=== PATIENT | female | born 1955 | race Caucasian/White ===

== ENCOUNTER → 2018-04-21 | Outpatient (CLI) | payer OTHER ==
--- NOTE | 2018-04-21 10:38 | RAD ---
EXAM DESCRIPTION: Knee,Left 2 or More Views CLINICAL HISTORY: 62 yearsFemale, PAIN IN KNEE COMPARISON: None. IMPRESSION: 2 views of the left knee demonstrate severe changes of osteoarthritis involving all 3 compartments of the knee with narrowing of the joint spaces, subchondral sclerosis, and marginal osteophytes. The findings are most severe in the medial tibiofemoral and patellofemoral compartments. No evidence of acute fracture, dislocation, or destructive osseous lesion. No evidence of a joint effusion. Electronically signed by: Markus Hylton MD 04/21/2018 10:37 AM CDT
--- NOTE | 2018-04-21 10:41 | RAD ---
EXAM DESCRIPTION: Knee,Right 2 or More Views CLINICAL HISTORY: 62 yearsFemale, PAIN IN KNEE COMPARISON: None. IMPRESSION: 2 views of the right knee demonstrate [id number] changes of osteoarthritis involving all 3 compartments of the knee with narrowing of the joint spaces and marginal osteophytes. No evidence of acute fracture or destructive osseous lesion. No evidence of a joint effusion. Electronically signed by: Markus Hylton MD 04/21/2018 10:40 AM CDT
--- NOTE | 2018-04-21 10:43 | RAD ---
EXAM DESCRIPTION: Lumbar Spine 5 Views CLINICAL HISTORY: Ankylosing spondylitis of unspecified sites in spine. Back pain. COMPARISON: None Available. TECHNIQUE: AP/lateral/ coned-down lateral/both obliques FINDINGS: Vertebral body stature and alignment are maintained. No evidence of acute fracture or destructive osseous lesion. No evidence of spondylolysis or spondylolisthesis. Multilevel lumbar disc degeneration with mild to moderate disc narrowing from L3-L4 through L5-S1. Hypertrophic facet degenerative changes at these levels. IMPRESSION: Multilevel disc degeneration and facet degenerative changes in the lower lumbar spine. Electronically signed by: Markus Hylton MD 04/21/2018 10:41 AM CDT
--- NOTE | 2018-04-21 10:44 | RAD ---
EXAM DESCRIPTION: Sacroiliac Joints CLINICAL HISTORY: 62 yearsFemale, Ankylosing spondylitis of unspecified sites in spine COMPARISON: None. IMPRESSION: Mild degenerative changes are demonstrated in both sacroiliac joints with no evidence of significant sclerosis or radiographic evidence of effusion. No acute fracture or destructive osseous lesion. Electronically signed by: Markus Hylton MD 04/21/2018 10:43 AM CDT
== END ==
LOC: RAD 09:43
PROVIDERS: ATTEND Internal Medicine Rheumatology
DX: M45.9 Ankylosing spondylitis of unspecified sites in spine (principal); M51.36 Other intervertebral disc degeneration, lumbar region; M17.0 Bilateral primary osteoarthritis of knee; M25.559 Pain in unspecified hip; M25.561 Pain in right knee

== ENCOUNTER → 2019-01-01 | Outpatient (CLI) | payer OTHER | LOC: GMAH 14:24 | PROVIDERS: ATTEND Family Medicine | DX: Z13.6 Encounter for screening for cardiovascular disorders (principal); Z13.220 Encounter for screening for lipoid disorders ==

== ENCOUNTER → 2019-01-15 | Outpatient (CLI) | payer OTHER ==
--- NOTE | 2019-01-16 16:24 | MAM ---
EXAM DESCRIPTION: 3D Screening BILATERAL : Digital Mammography. CLINICAL HISTORY: 63 years Female SCREENING . No complaints or personal history of breast cancer. Mother with breast cancer and remote family history of breast cancer. Childbirth late. Postmenopausal 17 years. No HRT. Bilateral breast augmentation. Benign biopsy right breast. Lifetime risk of developing breast cancer (Tyrer-Cuzick model)(%): 13.5. COMPARISON: 2-D digital screening bilateral mammography 09/17/2013.. No prior reports available. TECHNIQUE: Bilateral CC and MLO projection full-field images, with Reinaldo Implant Displacement digital tomosynthesis mammographic technique. Bilateral 2-D digital full-field images, MLO and CC projections, non-displaced. CAD Bilateral digital 2-D full-field MLO images. CAD not available for tomosynthesis or 2-D images. FINDINGS: The breast parenchymal density pattern is: Heterogeneously dense breast tissue, which may obscure small masses. No skin thickening or nipple retraction. Bilateral diffuse microcalcifications associated with fibroglandular tissues along with bilateral vascular calcifications. Biopsy site marker lower outer quadrant middle third right breast. Bilateral saline intramuscular implants. Capsules intact where seen. Multiple groups of micro-calcifications in the upper outer quadrant of the right breast, and in the posterior left breast near the posterior nipple line. Motion artifact on some of the images. IMPRESSION: BI-RADS CATEGORY: 0 - INCOMPLETE- Need additional imaging evaluation. FOLLOW-UP: Recall for additional imaging: Spot digital magnification. Upper outer quadrant of the right breast and posterior midline left breast. Written communication concerning the IMPRESSION and Follow-up, will be mailed to the patient and referring health care provider. Electronically signed by: Demar Hernandez MD 01/16/2019 4:22 PM CDT
== END ==
LOC: MAMMO 12:30
PROVIDERS: ATTEND Family Medicine
DX: Z12.31 Encounter for screening mammogram for malignant neoplasm of breast (principal)

== ENCOUNTER → 2019-02-13 | Outpatient (CLI) | payer OTHER ==
--- NOTE | 2019-02-13 14:15 | MRI ---
EXAM DESCRIPTION: Cervical Spine w/wo Contrast: MRI. CLINICAL HISTORY: 63 years Female RADICULOPATHY COMPARISON: Cervical MRI without contrast 07/04/2013. TECHNIQUE: Multiplanar, high-field MRI, multiple sequences, non-contrast Cervical spine. FINDINGS: Syringomyelia is again seen in the central cord with upper margin at the C6-7 disc space level and lower margin of the C7-T1 disc space level. No cord expansion. No proximal or distal cord lesion intrinsic or extrinsic. Stable appearance compared to the prior study. C2-3: Minimal disc desiccation without bulging. Small uncinate spur narrowing the right neural foramen. Left neuroforamen and canal are patent. Mild arthrosis left facet joint. C3-4: Normal signal in the disc with disc space preserved. Bilateral foramina are patent. Minimal facet arthrosis bilaterally with cyst posterior to the right facet joint. C4-C5: Normal signal in the disc except for posterior hyperintense T2 signal in a small annular fissure but no bulging. Disc space preserved. Bilateral facet joints are unremarkable and bilateral neural foramina and spinal canal are patent. C5-C6: Moderate disc space loss and disc desiccation. Anterior bulging and of the disc with spurs and mild narrowing of the canal. Bilateral uncinate spurs with disc spur complex causing moderate neural foraminal narrowing. Facet joints are unremarkable. Normal signal in the C6-C7 disc, C7-T1 disc, and T1-T2 disc with no bulging. Disc spaces preserved. Canal and neural foramina are patent. Facet joints unremarkable. Spinal alignment neutral. No cord compression.. Atlantoaxial joint with minimal hypertrophy. Base of the cerebellar tonsils is at the level of the foramen magnum. Paravertebral soft tissues negative.. Vertebral bodies are not compressed at any level. Normal marrow signal in the remaining vertebral bodies and the posterior elements. IMPRESSION: 1. Stable syringomyelia with upper margin at the level of the C6-7 disc space and lower margin at the level of the C7-T1 disc space. No cord compression or expansion. No extrinsic mass involving the cord above or below the lesion. 2. Posterior C4-C5 disc bulge with annular fissure with minimal bulging but no significant canal or neural foraminal narrowing. This has progressed since the prior study. 3. Spondylosis C5-C6 with neural foraminal and canal narrowing stable since the prior study. Electronically signed by: Demar Hernandez MD 02/13/2019 2:11 PM CDT
--- NOTE | 2019-02-13 17:11 | MAM ---
EXAM DESCRIPTION: 3D Diagnostic, Bilateral: Digital Mammography CLINICAL HISTORY: 63 yearsFemaleABNORMAL MAMMO bilateral microcalcifications.. COMPARISON: Bilateral screening digital breast tomosynthesis 01/15/2019... TECHNIQUE: Bilateral LM projection full-field images, digital mammographic tomosynthesis, Reinaldo implant displacement technique. Bilateral 2-D digital full-field LM images. Bilateral magnification of the central and lateral and superior breast in MLO projections. CAD not available. FINDINGS: The breast parenchymal density pattern is: Heterogeneously dense breast tissue, which may obscure small masses. No skin thickening or nipple retraction . Again noted are bilateral retro-muscular saline implants. Multiple diffuse microcalcifications are seen in the retroareolar left breast and extending more laterally than medially and also more densely associated with the fibroglandular density tissue is. Similar pattern and morphology of calcifications is noted in the retroareolar and upper lateral quadrant of the right breast with fewer calcifications inferior and medial to the nipple. Biopsy site marker is visible at the 8:00 position of the right breast approximately 3 cm from the nipple. No focal, stellate mass or density bilaterally. Implant margins and borders are intact where seen., IMPRESSION: BI-RADS CATEGORY: 3 - PROBABLY BENIGN. Management: Short interval (6-month) follow-up diagnostic bilateral digital breast tomosynthesis. The FINDINGS and the FOLLOW-UP plan were reviewed in person with the patient after the examination. Written communication explaining the IMPRESSION and FOLLOW-UP will be mailed to the patient and referring care provider. Electronically signed by: Demar Hernandez MD 02/13/2019 5:08 PM CDT
== END ==
LOC: MAMMO 10:18
PROVIDERS: ATTEND Family Medicine
DX: M51.16 Intervertebral disc disorders with radiculopathy, lumbar region (principal); G95.0 Syringomyelia and syringobulbia; M47.892 Other spondylosis, cervical region; M50.921 Unspecified cervical disc disorder at C4-C5 level; R92.8 Other abnormal and inconclusive findings on diagnostic imaging of breast
CPT/HCPCS: 72156; 77066; G0279

== ENCOUNTER → 2019-02-22 | Outpatient (CLI) | payer OTHER ==
--- NOTE | 2019-02-23 12:24 | RAD ---
EXAM: Humerus,Right CLINICAL HISTORY: PN IN UPPER LIMB COMPARISON STUDY: None TECHNICAL: AP and lateral x-rays of the right humerus FINDINGS: No humeral fracture. The shoulder and elbow are in alignment. There are mild degenerative changes of the left AC joint. IMPRESSION: Negative right humerus. Mild degenerative changes of the right AC joint. Electronically signed by: Frandy Valdez MD 02/23/2019 12:22 PM CDT
== END ==
LOC: RAD 16:35
PROVIDERS: ATTEND Orthopaedic Surgery
DX: M19.011 Primary osteoarthritis, right shoulder (principal)

== ENCOUNTER → 2019-10-12 | Outpatient (CLI) | payer OTHER ==
--- NOTE | 2019-10-12 11:39 | RAD ---
EXAM DESCRIPTION: Shoulder,Right 2 or More Views CLINICAL HISTORY: PAIN IN RIGHT SHOULDER COMPARISON: None. TECHNIQUE: 4 views right FINDINGS: Mild degenerative changes are observed in the acromioclavicular joint. The glenohumeral joint is normal in appearance. No evidence of a fracture or dislocation is seen. IMPRESSION: Mild right AC joint arthritis is observed. The exam is otherwise unremarkable. Electronically signed by: Juan F Callejas MD 10/12/2019 11:37 AM [facility]
--- NOTE | 2019-10-12 11:40 | RAD ---
EXAM DESCRIPTION: FIVE VIEW CERVICAL SPINE CLINICAL HISTORY: PAIN IN RIGHT SHOULDER COMPARISON: None Available. TECHNIQUE: AP/lateral/ both oblique/open-mouth odontoid FINDINGS: Mild anterior subluxation of C3 on C4 is observed. Loss of disc height is observed at the C5-6 level. Mild anterior osteophyte formation is observed at this level. No malrotation is observed. The atlantoaxial junction and dens are normal. IMPRESSION: Degenerative changes are seen at the C3-4 and C5-6 levels. Electronically signed by: Juan F Callejas MD 10/12/2019 11:38 AM [facility]
== END ==
LOC: RAD 10:28
PROVIDERS: ATTEND Family Medicine
DX: M47.892 Other spondylosis, cervical region (principal); M19.011 Primary osteoarthritis, right shoulder

== ENCOUNTER → 2019-10-22 | Outpatient (CLI) | payer OTHER ==
--- NOTE | 2019-10-22 16:44 | MRI ---
Study: MRI of the Right Shoulder. Indication: ROTATOR CUFF SYNDROME Technique: Multiplanar, multi sequence MRI of the right shoulder was obtained without intravenous contrast. Comparison: None. Findings: Moderate hypertrophic AC joint osteoarthritis. Type I acromion. Full-thickness, fullwidth supraspinatus and infraspinatus tendon tearing with retraction of torn tendon fibers to the level of the AC joint line. Subscapularis tendinosis and attenuation. Mild atrophy and grade 1 fatty infiltration of rotator cuff musculature with mild intramuscular edema supraspinatus and infraspinatus muscle bellies. Long head biceps tendinosis with flattening of the tendon at the superior intertubercular groove. Circumferential labral truncation/degeneration. Mild glenohumeral joint osteoarthritis. Small joint effusion. No acute fracture. Impression: Retracted full-thickness, fullwidth supraspinatus and infraspinatus tendon tearing. Subscapularis tendinosis and attenuation. Mild atrophy and grade 1 fatty infiltration rotator cuff musculature as well as mild edema of the supraspinatus and infraspinatus muscle bellies. Circumferential labral truncation and degeneration. Mild glenohumeral joint osteoarthritis with small joint effusion. Moderate hypertrophic AC joint osteoarthritis. Electronically signed by: Jose Miguel Vaca MD 10/22/2019 4:43 PM [employer]
== END ==
LOC: MRI 13:27
PROVIDERS: ATTEND Orthopaedic Surgery
DX: M75.101 Unspecified rotator cuff tear or rupture of right shoulder, not specified as traumatic (principal); M62.511 Muscle wasting and atrophy, not elsewhere classified, right shoulder; M75.91 Shoulder lesion, unspecified, right shoulder; M19.011 Primary osteoarthritis, right shoulder; M25.411 Effusion, right shoulder

== ENCOUNTER → 2019-10-30 | Outpatient (CLI) | payer OTHER | LOC: LAB.O 10:17 | PROVIDERS: ATTEND Orthopaedic Surgery | DX: Z01.818 Encounter for other preprocedural examination (principal) ==

== ENCOUNTER 2019-11-21 05:36 | Day surgery (SDC) | payer OTHER ==
[2019-11-21] MEDS ORDERED: LACTATED RINGERS 1,000 ML IVS ONE (06:30)
[2019-11-21] MEDS ORDERED: VANCOMYCIN HCL INJ 1,000 MG VIAL IVPB ONE (06:56)
[2019-11-21] MEDS ORDERED: ceFAZolin SODIUM 1 GM VIAL IRRIG ONE (06:56)
[2019-11-21] MEDS ORDERED: BUPIVACAINE LIPOSOME 13.3 MG/ML VIAL INJ ONE (06:56)
[2019-11-21] MEDS ORDERED: BUPIVACAINE 0.5% 30 ML VIAL INJ ONE (06:56)
[2019-11-21] MEDS ORDERED: PROPOFOL 200 MG/20 ML VIAL IV ONE (07:00)
[2019-11-21] MEDS ORDERED: raNITIdine HCL INJ 25 MG/ML VIAL ONE (07:00)
[2019-11-21] MEDS ORDERED: LIDOCAINE 1% 10 ML VIAL INJ ONE (07:00)
[2019-11-21] MEDS ORDERED: DEXAMETHASONE INJ 10 MG/ML VIAL ONE (07:00)
[2019-11-21] MEDS ORDERED: fentaNYL CITRATE INJ 50 MCG/ML AMP ONE (07:00)
[2019-11-21] MEDS ORDERED: ePHEDrine SULF 50 MG/ML ONE (07:00)
[2019-11-21] MEDS ORDERED: MIDAZOLAM INJ 2 MG/2 ML VIAL ONE (07:00)
[2019-11-21] MEDS ORDERED: KETOROLAC TROMETHAMINE INJ 30 MG/ML VIAL ONE (07:00)
[2019-11-21] MEDS ORDERED: SODIUM CHLORIDE 0.9% 50 ML VIAL ONE (07:00)
[2019-11-21] MEDS ORDERED: KETAMINE HCL 100 MG/ML VIAL ONE (07:00)
[2019-11-21] MEDS ORDERED: ELECTROLYTE-A 1,000 ML IVS ONE (08:45)
[2019-11-22 02:56] VITALS: BP 98/52; TEMP 96.5; O2SAT 96
--- NOTE | 2019-11-22 09:25 | OP ---
PREOPERATIVE DIAGNOSIS: 1. Rotator cuff tear, right shoulder. POSTOPERATIVE DIAGNOSIS: 1. Rotator cuff tear, right shoulder. PROCEDURE: 1. Rotator cuff repair. SURGEON: Frantz Sorto MD. BENCH MOVER: Demar Lira CST, SA-C. ANESTHESIA: General anesthesia. COMPLICATIONS: None. FINDINGS: Complete rupture of the supraspinatus and infraspinatus tendons from their anatomic footprint. INDICATION: Ms. Schneider has a long history of shoulder pain. She has failed conservative measures and therefore requested operative intervention. After discussing the risks, benefits and alternatives to operative intervention, informed consent was obtained. PROCEDURE: The patient was brought to the Operating Room and placed in the supine position. General anesthesia was induced and the patient was transitioned into the beach chair position. The arm and shoulder were then sterilely prepped and draped. Following prepping and draping, an incision was made at the lateral border of the acromion extending distally. A split was made between the anterior and middle heads of the deltoid. Following that, a bursectomy was performed followed by identification of the rotator cuff. There was some retraction of the rotator cuff and, therefore, adhesions were lysed. Following mobilization of the cuff, a decortication at the anatomic footprint was performed. Six suture anchors were used to reapproximate the cuff in a double-row repair. Following that, the arm was taken through a range of motion. There did not appear to be any undue tension on the repair. The wound was very thoroughly irrigated and the deltoid was reapproximated with Ethibond. The skin was closed with a combination of running and interrupted stitches. Sterile dressings were placed. The patient was placed in a sling. The patient was awoken from anesthesia and taken to Recovery. POSTOPERATIVE PLAN: She has been given explicit instructions on limitations of activity . We will see her back again in two days and we will discuss her plan moving forward. We will likely have her completely restricted from movement for at least four weeks just given the size of the tear. #[id number] MTDD
== END 2019-11-21 10:45 | disposition home or self-care (01) ==
LOC: AMB 05:36
PROVIDERS: ATTEND Orthopaedic Surgery
DX: M75.121 Complete rotator cuff tear or rupture of right shoulder, not specified as traumatic (principal); Z79.899 Other long term (current) drug therapy
CPT/HCPCS: 01630; 0232T; 23420; 80307; A4216; J0690; J1100; J1885; J2250; J2780; J3010; J3370; J3490; J7120

== ENCOUNTER → 2020-04-09 | Outpatient (CLI) | payer OTHER ==
--- NOTE | 2020-04-09 14:24 | MRI ---
Study: MRI of the Left Shoulder. Indication: ROTATOR CUFF SYNDROME Technique: Multiplanar, multi sequence MRI of the left shoulder was obtained without intravenous contrast. Comparison: None. Findings: Severe AC joint osteoarthritis. Type I acromion with mild lateral downsloping. Moderate volume subacromial/subdeltoid bursal fluid. Irregular high-grade articular tearing throughout the supraspinatus and infraspinatus tendon insertions with tearing approaches full-thickness. Involved area measures approximately 40 mm AP by 32 mm transverse. Torn articular fibers retracted 2 the level of the mid acromion. Irregular high-grade articular, effectively full-thickness tearing superior subscapularis tendon insertion. Teres minor tendon intact. Mild atrophy and grade 1 fatty infiltration rotator cuff musculature. Long head biceps tendinosis. Intramuscular edema within the subscapularis muscle belly. Extensive pericapsular edema and inflammation about glenohumeral joint. Mild glenohumeral joint osteoarthritis with a tiny joint effusion. Sprain of the inferior glenohumeral ligament suspected without rupture. Impression: High-grade articular tearing of the supraspinatus, infraspinatus, and subscapularis tendons as above. Mild atrophy and grade 1 fatty infiltration rotator cuff musculature with intramuscular edema subscapularis muscle belly. Long head biceps tendinosis. Mild glenohumeral joint osteoarthritis with a tiny joint effusion pericapsular edema. Inferior glenohumeral ligament sprain. Severe AC joint osteoarthritis. Electronically signed by: Jose Miguel Vaca MD 04/09/2020 2:23 PM CDT
== END ==
LOC: MRI 08:00
PROVIDERS: ATTEND Orthopaedic Surgery
DX: M75.102 Unspecified rotator cuff tear or rupture of left shoulder, not specified as traumatic (principal); S43.432A Superior glenoid labrum lesion of left shoulder, initial encounter; M19.012 Primary osteoarthritis, left shoulder; M75.22 Bicipital tendinitis, left shoulder; M25.412 Effusion, left shoulder; M62.512 Muscle wasting and atrophy, not elsewhere classified, left shoulder; R60.0 Localized edema